=== PATIENT | female | born 1940 | race Caucasian/White ===

== ENCOUNTER 2017-02-12 07:30 | Inpatient (IN) ==
[2017-02-09 17:09] LABS: Appearance,Urine HAZY; Bilirubin,Urine NEG (NEG); Color,Urine YELLOW; Glucose,Urine (UA) NEGATIVE (NEG); Leukocyte Esterase,Urine NEG /uL (NEG); Nitrate,Urine NEG (NEG); Protein,Urine NEG (NEG); Specific Gravity,Urine 1.011 (1.000-1.035); Urine Blood NEG mg/dL (<0.03); Urobilinogen,Urine NEG (NEG)
[2017-02-09 18:14] LABS: Blood Urea Nitrogen 33 mg/dl (8-23)
[2017-02-09 18:17] LABS: Basophils # (Auto) 0 K/mcL (0.0-0.3); Basophils % (Auto) 0.7 % (0.0-2.0); Eosinophils # (Auto) 0.5 K/mcL (0.0-0.7); Eosinophils % (Auto) 7.7 % (0.0-7.0); Granulocytes % (Auto) 60.2 % (38.0-78.0); Lymphocytes # (Auto) 1.8 K/mcL (1.5-4.8); Lymphocytes % (Auto) 25.7 % (15.5-49.0); Mean Cell Volume 97.5 fL (80.0-100.0); Mean Corpuscular HGB Conc 32.7 g/dL (31.0-36.0); Mean Corpuscular Hemoglobin 31.8 pg (26.0-34.0); Monocytes # (Auto) 0.4 K/mcL (0.1-0.9); Monocytes % (Auto) 5.7 % (1.0-12.0); Platelet Count 250 K/mcL (140-440); RBC 3.58 M/mcL (4.00-5.20); Red Cell Distribution Width 12.9 % (11.5-14.5)
[~2017-02-12 07:30] MED LIST: ACETAMINOPHEN 500 MG TABLET PO SCH; PREGABALIN 150 MG CAPSULE PO SCH; ceFAZolin 1 GM VIAL IV SCH; oxyCODONE 10 MG TAB.ER.12H PO SCH
[2017-02-12] MEDS ORDERED: LIDOCAINE HCL/PF 100 MG/5 ML SYRINGE IV ONE (13:45)
[2017-02-12] MEDS ORDERED: MIDAZOLAM 5 MG/5 ML VIAL IV ONE (13:45)
[2017-02-12] MEDS ORDERED: ROPIVACAINE HCL/PF 30 ML VIAL IJ ONE (13:45)
[2017-02-12] MEDS ORDERED: ONDANSETRON 4 MG/2 ML VIAL IV ONE (13:45)
[2017-02-12] MEDS ORDERED: DEXAMETHASONE 10 MG/ML VIAL IV ONE (13:45)
[2017-02-12] MEDS ORDERED: TRANEXAMIC ACID 1,000 MG/10 ML VIAL IV ONE (13:45)
[2017-02-12] MEDS ORDERED: PROPOFOL 200 MG/20 ML VIAL IV ONE (13:45)
[2017-02-12] MEDS ORDERED: fentaNYL 100 MCG/2 ML VIAL IV ONE (13:45)
[2017-02-12] MEDS ORDERED: FLEETS ADULT ENEMA PR PRN (13:46)
[2017-02-12] MEDS ORDERED: POLYETHYLENE GLYCOL 3350 17 GM PACKET PO PRN (13:46)
[2017-02-12] MEDS ORDERED: MAGNESIUM HYDROXIDE 30 ML ORAL.SUSP PO PRN (13:46)
[2017-02-12] MEDS ORDERED: BENZOCAINE/MENTHOL 1 LOZENGE PO PRN ×2 (13:46→14:39)
[2017-02-12] MEDS ORDERED: TRANEXAMIC ACID 1,000 MG/10 ML VIAL IV SCH (13:46)
[2017-02-12] MEDS ORDERED: ONDANSETRON 4 MG/2 ML VIAL IV PRN ×2 (13:46→14:39)
[2017-02-12] MEDS ORDERED: BISACODYL 10 MG SUPP.RECT PR PRN (13:46)
[2017-02-12] MEDS ORDERED: GENTAMICIN SULFATE 800 MG/20 ML VIAL IR ONE (14:15)
[2017-02-12] MEDS ORDERED: NALOXONE HCL 0.4 MG/ML VIAL IV PRN (14:39)
[2017-02-12] MEDS ORDERED: HYDROmorphone 2 MG/ML SYRINGE IV PRN (14:39)
[2017-02-12] MEDS ORDERED: LACTATED RINGERS 250 ML IV PRN (14:39)
[2017-02-12] MEDS ORDERED: fentaNYL 100 MCG/2 ML VIAL IV PRN (14:39)
[2017-02-12] MEDS ORDERED: METHOCARBAMOL 1,000 MG/10 ML VIAL IV PRN (14:39)
[2017-02-12] MEDS ORDERED: IPRATROPIUM/ALBUTEROL 3 ML AMPUL.NEB NEB PRN (14:39)
[2017-02-12] MEDS ORDERED: MEPERIDINE 25 MG/ML SYRINGE IV PRN (14:39)
[2017-02-12] MEDS ORDERED: FLUMAZENIL 0.1 MG/ML ML IV PRN (14:39)
[2017-02-12] MEDS ORDERED: LACTATED RINGERS 1,000 ML IV SCH (14:45)
--- NOTE | 2017-02-12 15:02 | Brief Operative Note ---
Date of procedure: 02/12/17 Pre-op diagnosis: Right shoulder rca Post-op diagnosis: same Procedure: right shoulder reverse tsa Grafts/Implants: Yes Anesthesia: GETA Findings: complete rotator cuff tear Complications: none Complications Description: 02/12/17 15:02 none Surgeon: Alvarado Cassidy Global Project Manager: Dayton Fernandes Estimated blood loss (cc): 100 Specimens Removed/Pathology: none sent Condition: stable Disposition: PACU
--- NOTE | 2017-02-12 15:57 | Operative Note ---
DATE OF OPERATION: 02/12/2017 PREOPERATIVE DIAGNOSIS: Right shoulder rotator cuff arthropathy. POSTOPERATIVE DIAGNOSIS: Right shoulder rotator cuff arthropathy. PROCEDURE: Right reverse total shoulder arthroplasty using Thalia components. SURGEON: Alvarado Cassidy MD. DRY GOODS CLERK: Dayton Fernandes PA-C. ANESTHESIA: General LMA anesthesia. IMPLANTS: A 28 mm metaglene with three screws, 32 , 32 and 28. One central screw measuring 28 mm with a 40 mm glenosphere with 6 mm of offset and 2 mm eccentricity. The humerus was a size 10 cemented stem with a 44 mm outer body standard thickness poly. COMPLICATIONS: None. DESCRIPTION OF PROCEDURE: The patient was brought to the operating room and put to sleep with general LMA anesthesia. Once asleep, the patient had the right shoulder sterilely prepped and draped in the usual sterile fashion. We confirmed the operative shoulder and placed patient in a beach chair position. Ioban was placed over the skin. Tranexamic acid and antibiotics were given. We then made our deltopectoral incision, identified the cephalic vein which was retracted laterally, and identified the conjoined tendon which was retracted medially. We released the anterior capsule, and then dislocated the humeral head which it was noted to show complete loss of the rotator cuff, subscap, supraspinatus, infraspinatus, and teres minor. A little bit of the teres minor was intact posteriorly. We made our neck cut at the surgical neck region. We then placed the cap on the humeral head, performed a 360 degree capsulotomy. We placed a pin centrally in the glenoid, reamed up to the size 40, removed spurs inferiorly, and then placed a 28 mm glenosphere with a central screw 28 mm, two superior screws 32, and an inferior screw 28. We placed our 40 mm glenosphere with 6 mm of offset, 2 mm eccentricity. This was tapped into place and secured. We then prepared the humerus. The humerus was broached up to the size of 11. We trialed the 11 with a standard thickness poly. This seemed to be very stable. We then proceeded with cementing a size 10 stem with a standard thickness poly on the outer body. Once this was dry and cemented, we reduced the shoulder, removed excess cement, irrigated thoroughly. Cephalic vein was intact. We did use some vascular clips to clip some small vessels around the inner border of the neck of the scapula. We then closed the fascial layer with 2-0 Vicryl and closed the skin with 2-0 Vicryl and adhesive closure. The patient tolerated this well without complication. VANDANA:mikayla Job ID: [id number] Doc ID: [id number] Alvarado Cassidy MD
--- NOTE | 2017-02-12 16:07 | XRay Report ---
HISTORY: Reason for Exam:Post-OP Total Shoulder FINDINGS: There is a well-positioned reverse shoulder prosthesis. Posterior to the prosthetic humeral head there is a bone fragment which probably arose from the patient's [place] humeral head. It Measures 0.6 x 1.8 cm. The distal end of the clavicle has been removed. There is upward displacement of the clavicle relative to the acromion. Between these two bones there is a small soft tissue calcification. Surgical clips are present in the right axilla. IMPRESSION: Well-positioned right shoulder prosthesis Interpreted and Authenticated by: Peter Lopez 02/12/17
[2017-02-12] MEDS: LACTATED RINGERS 1,000 ML IV SCH ×2 (16:24→17:19)
[2017-02-12] MEDS: 0.9 % SODIUM CHLORIDE 10 ML SYRINGE IV SCH ×2 (17:13→21:01)
[2017-02-12] MEDS: DOCUSATE SODIUM 100 MG CAPSULE PO SCH (20:16)
[2017-02-12] MEDS: oxyCODONE 10 MG TAB.ER.12H PO SCH (20:16)
[2017-02-12] MEDS ORDERED: TEMAZEPAM 15 MG CAPSULE PO PRN (21:00)
[2017-02-12] MEDS ORDERED: SENNOSIDES 1 TABLET PO SCH (21:00)
[2017-02-12] MEDS: ceFAZolin 1 GM VIAL IV SCH (22:25)
[2017-02-13] MEDS: LACTATED RINGERS 1,000 ML IV SCH ×3 (02:05→14:00)
[2017-02-13] MEDS: 0.9 % SODIUM CHLORIDE 10 ML SYRINGE IV SCH ×2 (05:22→14:00)
[2017-02-13] MEDS: ceFAZolin 1 GM VIAL IV SCH (05:34)
[2017-02-13] MEDS: HYDROcodone/APAP 10/325MG TABLET PO PRN ×3 (05:34→12:15)
--- NOTE | 2017-02-13 06:52 | Orthopedic Progress Note ---
Subjective Patient information: Note initiated : 02/13/17 at 6:52 am Service Date, if different from initiated Date: [] Patient: Syeda Galvan 76 y/o F admitted on 02/12/17 for Right Reverse Total Shoulder Arthroplasty and Open. Chief Complaint: [Pt is stable this morning on post operative day 1 without any significant concerns or complaints. Patients vital signs have remained stable. Patients dressing is dry and exhibits a grossly intact neurovascular and neuromotor exam. Patients 10 point ROS is otherwise negative. ] Objective Vital signs: Vital Signs Temp Pulse Resp BP Pulse Ox 02/13/17 04:00 97.7 F 67 16 130/68 92 02/12/17 23:37 97.9 F 68 20 143/80 94 02/12/17 19:25 98.3 F 66 18 123/72 95 02/12/17 18:25 97.0 F L 65 16 120/63 94 02/12/17 17:55 149/77 94 02/12/17 17:25 161/96 96 02/12/17 17:10 139/85 94 02/12/17 16:55 155/81 97 02/12/17 16:40 96.4 F L 12 151/88 94 02/12/17 16:27 97.8 F 65 12 128/64 94 02/12/17 16:15 68 11 L 145/63 95 02/12/17 16:00 68 13 147/68 97 02/12/17 15:50 65 15 102/81 96 02/12/17 15:35 66 10 L 156/98 100 02/12/17 15:20 97.2 F L 68 10 L 137/77 100 02/12/17 08:05 18 95 02/12/17 08:00 18 95 02/12/17 07:38 97.1 F L 18 129/86 95 Intake and Output 02/12/17 02/13/17 02/13/17 21:59 05:59 13:59 Intake Total 1700 / 1700 2570 / 2570 Output Total 990 / 990 800 / 800 500 / 500 Balance 710 / 710 1770 / 1770 -500 / -500 Intake: IV 1000 / 1000 Lactated Ringers 1,000 ml 1000 / 1000 @ 125 mls/hr IV .Q8H [facility] Rx#:[id number] Oral 1570 / 1570 IV - Manual Only 1700 / 1700 Output: Urine Catheter Amount 500 / 500 Void Amount 340 / 340 800 / 800 500 / 500 Straight 500 / 500 Estimated Blood Loss 150 / 150 Other: Meal applesauce Percent of Meal Consumed 100% Feeding Ability Assist with Tray Set Up # Voids 1 Weight 177 lb 12.8 oz Intake & Output: Intake & Output 02/12/17 02/13/17 02/13/17 21:59 05:59 13:59 Intake Total 1700 / 1700 2570 / 2570 Output Total 990 / 990 800 / 800 500 / 500 Balance 710 / 710 1770 / 1770 -500 / -500 Weight 177 lb 12.8 oz Intake: IV 1000 / 1000 Lactated Ringers 1,000 ml 1000 / 1000 @ 125 mls/hr IV .Q8H [facility] Rx#:[id number] Oral 1570 / 1570 IV - Manual Only 1700 / 1700 Output: Urine Catheter Amount 500 / 500 Void Amount 340 / 340 800 / 800 500 / 500 Straight 500 / 500 Estimated Blood Loss 150 / 150 Other: Meal applesauce Percent of Meal Consumed 100% Feeding Ability Assist with Tray Set Up # Voids 1 Incision: Yes healing Incision clean and dry: Yes Dressing: Yes clean Weight bearing status: full Neurological exam IM: Yes motor sensory intact, Yes neurovascular intact Extremities exam IM: Yes neurovascular intact - Labs CBC & BMP: 02/13/17 04:10 02/09/17 15:55 Labs: Orthopedic Labs 02/12/17 02/09/17 07:42 15:55 POC PT 12.4 PT 19.3 H POC INR 1.0 INR 1.6 H APTT 33 02/13/17 02/09/17 04:10 15:55 Hgb 10.0 L 11.4 L Hct 30.4 L 34.9 L Assessment and Plan (1) History of total shoulder replacement Patient has been educated regarding wound care and dressings, follow up recommendations, and medication use. We will f/u with the patient within 2-3 weeks for wound check. Status: Acute
--- NOTE | 2017-02-13 06:55 | Discharge Summary ---
Ortho Discharge - TSA - Patient Instructions Diet: Regular Diet Activity: activity as tolerated, weight bearing as tolerated Total Shoulder Protocol: Leave immobilizer in place except for bathing and ROM. Abduction pillow. Continue to wear sling until seen by physician. Codman Pendulum : These exercises use momentum produced by your body to move your shoulder joint. Bend your knees and shift your weight to your front leg, then back, allowing your arm to swing in the same directions. Using the same technique, alternately shift your weight between your right and left legs, allowing your arm to swing from side to side. These exercises are also performed in counterclockwise and clockwise circular motions. Typically these exercises are performed several times per day, for a set number repetitions or minutes, such as 20 times in a row or 5 minutes at a time. Dressing Care: May shower in 2 days - Problem Maintenance (1) History of total shoulder replacement Status: Acute - Follow Up Plan Disposition: Home, Self-Care Prognosis: Good Rehab Potential: Good I certify that the patient requires SNF services: No Overall status at discharge: patient is progressing back to baseline - Orders For Discharge Prescriptions: Docusate Sodium [Colace] 100 mg PO BID #60 capsule HYDROcodone/APAP 10/325MG [[place] 10/325Mg] 1 - 2 tab PO Q4HP PRN #75 tablet PRN Reason: Pain
[2017-02-13] MEDS: DOCUSATE SODIUM 100 MG CAPSULE PO SCH (08:40)
[2017-02-13] MEDS: oxyCODONE 10 MG TAB.ER.12H PO SCH (08:41)
== END 2017-02-13 15:21 | disposition home or self-care (01) ==
LOC: MEDSUR 07:30
PROVIDERS: ADMIT Orthopaedic Surgery; ATTEND Orthopaedic Surgery

== ENCOUNTER 2017-06-14 04:57 | Inpatient (IN) ==
[2017-06-07 12:17] LABS: Basophils # (Auto) 0 K/mcL (0.0-0.3); Basophils % (Auto) 0.4 % (0.0-2.0); Eosinophils # (Auto) 0.4 K/mcL (0.0-0.7); Eosinophils % (Auto) 6.2 % (0.0-7.0); Granulocytes % (Auto) 72.6 % (38.0-78.0); Lymphocytes # (Auto) 1.1 K/mcL (1.5-4.8); Lymphocytes % (Auto) 15.3 % (15.5-49.0); Mean Corpuscular HGB Conc 33.3 g/dL (31.0-36.0); Mean Corpuscular Hemoglobin 31.3 pg (26.0-34.0); Monocytes # (Auto) 0.4 K/mcL (0.1-0.9); Monocytes % (Auto) 5.5 % (1.0-12.0); Platelet Count 212 K/mcL (140-440); RBC 3.87 M/mcL (4.00-5.20); Red Cell Distribution Width 14.5 % (11.5-14.5)
[2017-06-07 12:24] LABS: Blood Urea Nitrogen 40 mg/dl (8-23)
[2017-06-07 17:05] LABS: Appearance,Urine HAZY; Bacteria,Urine FEW /hpf (0); Bilirubin,Urine NEG (NEG); Color,Urine YELLOW; Glucose,Urine (UA) NEGATIVE (NEG); Leukocyte Esterase,Urine NEG /uL (NEG); Mucus,Urine FEW /hpf (0); Nitrate,Urine POS (NEG); Protein,Urine NEG (NEG); Specific Gravity,Urine 1.017 (1.000-1.035); Urine Blood NEG mg/dL (<0.03); Urine RBC 0 /hpf (0-1); Urine Squamous Epithelial Cell 0 /hpf (0-4); Urine WBC 1 /hpf (0-4); Urobilinogen,Urine NEG (NEG)
--- NOTE | 2017-06-12 16:27 | EKG Interpretations ---
COLLET MAKER: Kalin Babin MD ENCOUNTER DATE: 06/07/2017 COVER SHEET DATE: 06/14/2017 FINDINGS: Atrial pacing at 65 beats per minute. Nonspecific ST-segment changes. Left anterior fascicular block. HARJEET: Job ID: [id number] Doc ID: [id number] Kalin aBbin MD
[2017-06-14] MEDS ORDERED: oxyCODONE 10 MG TAB.ER.12H PO SCH (05:00)
[2017-06-14] MEDS ORDERED: ceFAZolin 1 GM VIAL IV SCH (05:00)
[2017-06-14] MEDS ORDERED: ACETAMINOPHEN 500 MG TABLET PO SCH (05:00)
[2017-06-14] MEDS ORDERED: PREGABALIN 75 MG CAPSULE PO SCH (05:00)
[2017-06-14] MEDS ORDERED: CELECOXIB 200 MG CAPSULE PO SCH (05:00)
[2017-06-14] MEDS ORDERED: KETOROLAC 30 MG, ROPIVACAINE HCL/PF 49.5 ML, EPINEPHrine 0.5 MG, 0.9 % SODIUM CHLORIDE ... IJ SCH (06:30)
[2017-06-14 06:39] LABS: Appearance,Urine SL HAZY; Bacteria,Urine 4+ /hpf (0); Bilirubin,Urine NEG (NEG); Color,Urine YELLOW; Glucose,Urine (UA) NORM (NEG); Leukocyte Esterase,Urine TRACE /uL (NEG); Nitrate,Urine POS (NEG); PH,Urine 5.5 (5.0-9.0); Protein,Urine 0 mg/dL (NEG); Specific Gravity,Urine 1.015 (1.000-1.035); Urine Blood NEG mg/dL (<0.03); Urine RBC 1 /hpf (0-1); Urine Squamous Epithelial Cell 0 /hpf (0-4); Urine WBC 3 /hpf (0-4); Urobilinogen,Urine NORM (NEG)
[2017-06-14] MEDS ORDERED: LIDOCAINE HCL/PF 100 MG/5 ML SYRINGE IV ONE (07:45)
[2017-06-14] MEDS ORDERED: ROPIVACAINE HCL/PF 20 ML VIAL IJ ONE (07:45)
[2017-06-14] MEDS ORDERED: ONDANSETRON 4 MG/2 ML VIAL IV ONE (07:45)
[2017-06-14] MEDS ORDERED: DEXAMETHASONE 10 MG/ML VIAL IV ONE (07:45)
[2017-06-14] MEDS ORDERED: PROPOFOL 200 MG/20 ML VIAL IV ONE (07:45)
[2017-06-14] MEDS ORDERED: MIDAZOLAM 2 MG/2 ML VIAL IV ONE (07:45)
[2017-06-14] MEDS ORDERED: TRANEXAMIC ACID 1,000 MG/10 ML VIAL IV ONE ×2 (07:45→09:45)
[2017-06-14] MEDS ORDERED: GENTAMICIN SULFATE 800 MG/20 ML VIAL IR ONE (08:24)
[2017-06-14] MEDS ORDERED: diphenhydrAMINE 50 MG/ML VIAL IV PRN (08:54)
[2017-06-14] MEDS ORDERED: NALOXONE HCL 0.4 MG/ML VIAL IV PRN (08:54)
[2017-06-14] MEDS ORDERED: LACTATED RINGERS 250 ML IV PRN (08:54)
[2017-06-14] MEDS ORDERED: HYDROmorphone 2 MG/ML SYRINGE IV PRN ×2 (08:54→09:45)
[2017-06-14] MEDS ORDERED: ePHEDrine 50 MG/ML AMPUL IV PRN (08:54)
[2017-06-14] MEDS ORDERED: METHOCARBAMOL 1,000 MG/10 ML VIAL IV PRN (08:54)
[2017-06-14] MEDS ORDERED: IPRATROPIUM/ALBUTEROL 3 ML AMPUL.NEB NEB PRN (08:54)
[2017-06-14] MEDS ORDERED: MEPERIDINE 50 MG/ML SYRINGE IM PRN (08:54)
[2017-06-14] MEDS ORDERED: BENZOCAINE/MENTHOL 1 LOZENGE PO PRN ×2 (08:54→09:45)
[2017-06-14] MEDS ORDERED: ONDANSETRON 4 MG/2 ML VIAL IV PRN ×2 (08:54→09:45)
[2017-06-14] MEDS ORDERED: FLUMAZENIL 0.1 MG/ML ML IV PRN (08:54)
[2017-06-14] MEDS ORDERED: MEPERIDINE 25 MG/ML SYRINGE IV PRN (08:54)
[2017-06-14] MEDS ORDERED: LACTATED RINGERS 1,000 ML IV SCH (09:00)
--- NOTE | 2017-06-14 09:39 | Brief Operative Note ---
Date of procedure: 06/14/17 Pre-op diagnosis: right knee djd severe valgus Post-op diagnosis: same Procedure: Right knee robotic TKA with peroneal nerve release Grafts/Implants: Yes Anesthesia: GETA Complications: none Complications Description: 06/14/17 09:39 none Surgeon: Alvarado Cassidy Diesel Mechanic Helper: Dayton Fernandes Estimated blood loss (cc): 22 Tourniquet Time (Minutes): 49 Specimens Removed/Pathology: none sent Condition: stable Disposition: PACU
[2017-06-14] MEDS ORDERED: MAGNESIUM HYDROXIDE 30 ML ORAL.SUSP PO PRN (09:45)
[2017-06-14] MEDS ORDERED: TEMAZEPAM 15 MG CAPSULE PO PRN (09:45)
[2017-06-14] MEDS ORDERED: FLEETS ADULT ENEMA PR PRN (09:45)
[2017-06-14] MEDS ORDERED: BISACODYL 10 MG SUPP.RECT PR PRN (09:45)
[2017-06-14] MEDS ORDERED: oxyCODONE/APAP 5/325MG TABLET PO PRN (09:45)
[2017-06-14] MEDS ORDERED: ACETAMINOPHEN 325 MG TABLET PO PRN (09:45)
[2017-06-14] MEDS ORDERED: POLYETHYLENE GLYCOL 3350 17 GM PACKET PO PRN (09:45)
[2017-06-14] MEDS: fentaNYL 100 MCG/2 ML VIAL IV PRN ×2 (10:14→10:18)
--- NOTE | 2017-06-14 11:13 | Operative Note ---
DATE OF OPERATION: 06/14/2017 PREOPERATIVE DIAGNOSIS: Right knee degenerative arthritis with a valgus malalignment. POSTOPERATIVE DIAGNOSIS: Right knee degenerative arthritis with a valgus malalignment. PROCEDURE: Right total knee replacement using the [employer] robot with a peroneal nerve release. SURGEON: Alvarado Cassidy MD. CENTRAL SUPPLY CLERK: Dayton Fernandes PA-C. ANESTHESIA: General LMA anesthesia. COMPLICATIONS: None. DESCRIPTION OF PROCEDURE: The patient was brought to the operating room and put to sleep with general LMA anesthesia. Once asleep, the patient had the right leg sterilely prepped and draped in the usual sterile fashion after confirming this was the operative site. Once this was done and preop antibiotics and tranexamic acid had been given, we then made a midline incision with a mid vastus approach. Through this we exposed the knee. There was significant valgus malalignment. Once this was done, we then recognized the severe arthritis throughout with gouty arthritis. We then proceeded with a total knee arthroplasty with robotic assistance. We placed two pins above and below the knee and placed the arrays. We registered the center of hip rotation and registered intraarticular pins, as well as thirty points on the femur and tibia were registered. We then balanced the knee, positioned the implants and made our bony cuts using the robot. Once this was done, spurs were removed. We tapped into place, setting rotation using the robot. Once done, we then irrigated thoroughly and trialed the components. A size 4 tibial baseplate, size 5 femur, and 11 mm poly was trialed. This seemed to be a little too loose medially and tight laterally. We then placed a 13 mm poly and released the lateral collateral and popliteus subperiosteally. This balanced the knee very nicely. We then resurfaced the patella with severe maltracking. This was a total thickness of 22 mm. This was cut to 13 mm and a 36 mm patellar button was cemented into place. The cemented components were placed. Excess cement was removed. Spurs were removed from the back of the knee. The knee was perfectly balanced. We irrigated and then implanted the implants as noted above. The fascial layer was then closed with a barbed suture, 2-0 Vicryl of the subcutaneous and then adhesive closure superficially. Pins were removed and intraarticular pins removed. I then performed the second procedure which was a peroneal nerve release. A 2-inch incision laterally over the fibular head was made, dissected down to the fascial layer and identified the peroneal nerve. This was tracked through and around the fibular head. We irrigated thoroughly once the nerve had been decompressed. We closed the skin with 2-0 Vicryl and artie. The patient tolerated this well without complication. Tourniquet deflated at about 51 minutes. RBH:mikayla Job ID: [id number] Doc ID: [id number] Alvarado Cassidy MD
[2017-06-14] MEDS: 0.45 % SODIUM CHLORIDE 1,000 ML IV SCH ×2 (11:40→21:09)
--- NOTE | 2017-06-14 12:09 | XRay Report ---
CLINICAL INFORMATION: Postop total knee prostheses COMPARISON: None. FINDINGS: Right total knee prostheses is anatomically aligned. There is no osseous abnormality. Soft tissue swelling seen as expected IMPRESSION: Negative Interpreted and Authenticated by: Jerome Mills 06/14/17
[2017-06-14] MEDS: KETOROLAC 15 MG/ML VIAL IV SCH ×3 (12:10→23:52)
[2017-06-14] MEDS: 0.9 % SODIUM CHLORIDE 10 ML SYRINGE IV SCH ×2 (14:18→23:17)
[2017-06-14] MEDS: ceFAZolin 1 GM VIAL IV SCH ×2 (16:00→22:35)
[2017-06-14] MEDS: HYDROcodone/APAP 10/325MG TABLET PO PRN (17:25)
[2017-06-14] MEDS ORDERED: ASPIRIN 325 MG ENTERIC COATED TABLET PO SCH (21:00)
[2017-06-14] MEDS ORDERED: DOCUSATE SODIUM 100 MG CAPSULE PO SCH (21:00)
[2017-06-14] MEDS ORDERED: ASPIRIN 325 MG ENTERIC COATED TABLET PO ONE (21:00)
[2017-06-14] MEDS: rOPINIRole 1 MG TABLET PO SCH (21:07)
[2017-06-14] MEDS: WARFARIN 2.5 MG TABLET PO SCH (21:08)
[2017-06-14] MEDS: SENNOSIDES 1 TABLET PO SCH (21:08)
[2017-06-14] MEDS: DOCUSATE SODIUM 100 MG CAPSULE PO SCH (21:08)
[2017-06-15] MEDS: HYDROcodone/APAP 10/325MG TABLET PO PRN ×5 (02:56→21:14)
[2017-06-15] MEDS: KETOROLAC 15 MG/ML VIAL IV SCH ×3 (04:24→17:55)
[2017-06-15] MEDS: 0.9 % SODIUM CHLORIDE 10 ML SYRINGE IV SCH ×3 (05:22→21:16)
[2017-06-15] MEDS: 0.45 % SODIUM CHLORIDE 1,000 ML IV SCH ×2 (07:11→15:59)
--- NOTE | 2017-06-15 07:33 | Orthopedic Progress Note ---
Subjective Patient information: Note initiated : 06/15/17 at 7:32 am Service Date, if different from initiated Date: [] Patient: Syeda Galvan 77 y/o F admitted on 06/14/17 for Right Total Knee Arthroplasty with Davion and . Chief Complaint: [Pt is stable this morning on post operative day 1 without any significant concerns or complaints. Patients vital signs have remained stable. Patients dressing is dry and exhibits a grossly intact neurovascular and neuromotor exam. Patients 10 point ROS is otherwise negative. ] Objective Vital signs: Vital Signs Temp Pulse Resp BP BP Pulse Ox 06/15/17 07:21 97 06/15/17 07:17 96.4 F L 16 120/74 98 06/15/17 03:02 98.1 F 65 140/82 97 06/15/17 00:00 97.3 F 64 117/74 95 06/14/17 20:00 97.7 F 69 16 124/74 100 06/14/17 18:00 98 06/14/17 14:00 96 06/14/17 13:45 66 127/76 96 06/14/17 12:45 68 154/93 99 06/14/17 12:15 67 141/71 99 06/14/17 11:45 67 146/85 93 06/14/17 11:30 67 163/89 100 06/14/17 11:15 152/78 98 06/14/17 11:00 95.9 F L 151/88 06/14/17 10:40 97.6 F 68 14 146/71 99 06/14/17 10:36 66 11 L 146/71 99 06/14/17 10:31 97.6 F 68 14 147/75 100 06/14/17 10:16 65 22 162/91 100 06/14/17 10:01 65 16 166/90 100 06/14/17 09:56 67 16 180/86 100 06/14/17 09:46 97.5 F 66 8 L 139/78 100 06/14/17 09:31 71 10 L 150/78 100 Intake and Output 06/14/17 06/15/17 06/15/17 21:59 05:59 13:59 Intake Total 1548 / 1548 1000 / 1000 Output Total 1000 / 1000 501 / 501 Balance 548 / 548 -501 / -501 1000 / 1000 Intake: IV 948 / 948 1000 / 1000 Sodium Chloride 0.45% 1, 948 / 948 1000 / 1000 000 ml @ 100 mls/hr IV . Q10H [facility] Rx#:[id number] Oral 600 / 600 Output: Urine Catheter Amount 1000 / 1000 500 / 500 Void Amount Other: Meal Dinner Percent of Meal Consumed 100% Feeding Ability Independent # Voids 1 Weight 187 lb 8 oz Intake & Output: Intake & Output 06/14/17 06/15/17 06/15/17 21:59 05:59 13:59 Intake Total 1548 / 1548 1000 / 1000 Output Total 1000 / 1000 501 / 501 Balance 548 / 548 -501 / -501 1000 / 1000 Weight 187 lb 8 oz Intake: IV 948 / 948 1000 / 1000 Sodium Chloride 0.45% 1, 948 / 948 1000 / 1000 000 ml @ 100 mls/hr IV . Q10H [facility] Rx#:[id number] Oral 600 / 600 Output: Urine Catheter Amount 1000 / 1000 500 / 500 Void Amount Other: Meal Dinner Percent of Meal Consumed 100% Feeding Ability Independent # Voids 1 Incision: Yes healing Incision clean and dry: Yes Dressing: Yes clean Weight bearing status: full Neurological exam IM: Yes motor sensory intact, Yes neurovascular intact Extremities exam IM: Yes Foot pink and warm, Yes neurovascular intact - Labs CBC & BMP: 06/15/17 04:46 06/07/17 09:29 Labs: Orthopedic Labs 06/15/17 06/14/17 06/07/17 04:46 05:30 09:29 POC PT 12.9 PT 15.6 H 27.0 H POC INR 1.1 INR 1.2 H 2.4 H APTT 36 06/15/17 06/07/17 04:46 09:29 Hgb 12.1 Hct 27.1 L 36.4 Assessment and Plan (1) Hx of total knee arthroplasty Patient has been educated regarding wound care and dressings, follow up recommendations, and medication use. We will f/u with the patient within 2-3 weeks for wound check. Status: Acute
--- NOTE | 2017-06-15 07:35 | Discharge Summary ---
Ortho Discharge - TKA - Patient Instructions Diet: Regular Diet Activity: activity as tolerated, weight bearing as tolerated Total Knee Protocol: For Total Knee: Start ROM MACHO with stationary bike or rocking chair. Work on gaining full extension of knee. Posterior dislocation precautions provided. Hip abductor strengthening and gait training instructions provided. Apply Cryocuff as instructed. Dressing Care: May shower in 2 days Patient Education: Total Knee Replacement (DC) Additional Instructions: Discharge Instructions: Home with [facility] Do the exercises at home that physical therapy gave you. [facility]- machine set up operator paper goods your walker and CPM or make arrangements to have your CPM delivered to your home. [phone]. Take your photo ID, insurance cards with you. Weight bearing as tolerated. If you have the Aquacel Ag dressing, leave in place for 7 days then remove. If dressing becomes soiled (turns black), remove and use gauze 4x4 dressing and silvasorb ointment and change daily. Keep incision clean and dry. If you have Dermabond (a dressing with a mesh-like appearance), leave open to air. You may start showering on post op day #2. The Dermabond dressing can get wet, do not scrub dressing. Pat dry. CMP for home use. To avoid constipation while taking any narcotic pain medication, take an over the counter stool softener/laxative. Use your Cryocuff or ice packs as directed, on for 20 minutes at a time throughout the day. This and elevation will help with pain and swelling. Call your physician for fevers above 100.5 or pain not controlled by medication. Your prescriptions are with your discharge information. Some medications were electronically transmitted to your pharmacy of choice.CPM for home use. - Problem Maintenance (1) Hx of total knee arthroplasty Status: Acute - Follow Up Plan Follow Up Appointments: Alvarado Cassidy MD [Physician] - 06/29/17 9:20 am Disposition: Home, Self-Care Prognosis: Good Rehab Potential: Good I certify that the patient requires SNF services: No Overall status at discharge: patient is progressing back to baseline - Orders For Discharge Prescriptions: Ciprofloxacin [Cipro] 500 mg PO BID #14 tablet Ciprofloxacin [Cipro] 500 mg PO BID #12 tablet HYDROcodone/APAP 10/325MG [Sarah 10/325Mg] 1 - 2 tab PO Q4HP PRN #75 tablet PRN Reason: Pain
[2017-06-15] MEDS: AMIODARONE HCL 200 MG TABLET PO SCH (07:53)
[2017-06-15] MEDS: OMEPRAZOLE 20 MG CAPSULE PO SCH (07:53)
[2017-06-15] MEDS: DOCUSATE SODIUM 100 MG CAPSULE PO SCH ×2 (08:40→21:13)
[2017-06-15] MEDS: METOPROLOL SUCCINATE 50 MG TAB.XL.24H PO SCH (08:40)
[2017-06-15] MEDS: MULTIVIT,THER IRON,CA,FA & MIN 1 TABLET PO SCH (08:41)
[2017-06-15] MEDS: SERTRALINE 50 MG TABLET PO SCH (08:41)
[2017-06-15] MEDS: LISINOPRIL 20 MG TABLET PO SCH (08:41)
[2017-06-15] MEDS: Solifenacin Succinate [Vesicare] 10 mg Tab PO SCH (08:41)
[2017-06-15] MEDS: CHLORTHALIDONE 25 MG TABLET PO SCH (08:42)
[2017-06-15] MEDS ORDERED: CEFUROXIME 500 MG TABLET PO SCH (09:00)
[2017-06-15] MEDS: rOPINIRole 1 MG TABLET PO SCH ×2 (18:27→21:16)
[2017-06-15] MEDS: WARFARIN 2.5 MG TABLET PO SCH (21:12)
[2017-06-15] MEDS: SENNOSIDES 1 TABLET PO SCH (21:13)
[2017-06-16] MEDS: KETOROLAC 15 MG/ML VIAL IV SCH ×2 (00:23→05:35)
[2017-06-16] MEDS: 0.45 % SODIUM CHLORIDE 1,000 ML IV SCH ×2 (02:50→10:58)
[2017-06-16] MEDS: ONDANSETRON ODT 4 MG TABLET SL PRN ×2 (05:30→10:23)
[2017-06-16] MEDS: 0.9 % SODIUM CHLORIDE 10 ML SYRINGE IV SCH ×2 (05:31→17:04)
[2017-06-16] MEDS: HYDROcodone/APAP 10/325MG TABLET PO PRN ×3 (07:35→15:38)
[2017-06-16] MEDS: OMEPRAZOLE 20 MG CAPSULE PO SCH (07:35)
[2017-06-16] MEDS: LISINOPRIL 20 MG TABLET PO SCH (09:20)
[2017-06-16] MEDS: AMIODARONE HCL 200 MG TABLET PO SCH (09:20)
[2017-06-16] MEDS: SERTRALINE 50 MG TABLET PO SCH (09:20)
[2017-06-16] MEDS: METOPROLOL SUCCINATE 50 MG TAB.XL.24H PO SCH (09:20)
[2017-06-16] MEDS: MULTIVIT,THER IRON,CA,FA & MIN 1 TABLET PO SCH (09:20)
[2017-06-16] MEDS: DOCUSATE SODIUM 100 MG CAPSULE PO SCH (09:20)
[2017-06-16] MEDS: CHLORTHALIDONE 25 MG TABLET PO SCH (09:21)
[2017-06-16] MEDS: Solifenacin Succinate [Vesicare] 10 mg Tab PO SCH (09:21)
[2017-06-16] MEDS ORDERED: NAPROXEN 250 MG TABLET PO PRN ×2 (10:06→12:00)
--- NOTE | 2017-06-16 12:09 | Orthopedic Progress Note ---
Subjective Patient information: Note initiated : 06/16/17 at 12:08 pm Service Date, if different from initiated Date: [] Patient: Syeda Galvan 77 y/o F admitted on 06/14/17 for Right Total Knee Arthroplasty with Davion and . Chief Complaint: [doing well and no cp no sob with no significant pain] Objective Vital signs: Vital Signs Temp Pulse Resp BP Pulse Ox 06/16/17 08:00 94 06/16/17 07:19 97.8 F 16 103/67 94 06/16/17 04:00 97.8 F 67 16 119/80 95 06/16/17 00:00 97.8 F 69 16 124/74 92 06/15/17 23:00 93 06/15/17 20:00 98.2 F 68 16 127/83 95 06/15/17 15:36 97.2 F 69 16 138/83 96 06/15/17 15:20 96 Intake and Output 06/15/17 06/16/17 06/16/17 21:59 05:59 13:59 Intake Total 200 / 200 640 / 640 Output Total 525 / 525 680 / 680 Balance -525 / -525 -480 / -480 640 / 640 Intake: Oral 200 / 200 640 / 640 Output: Urine Catheter Amount 550 / 550 Void Amount 525 / 525 Emesis 130 / 130 Other: Meal Breakfast Percent of Meal Consumed 100% # Bowel Movements 1 Weight 200 lb Intake & Output: Intake & Output 06/15/17 06/16/17 06/16/17 21:59 05:59 13:59 Intake Total 200 / 200 640 / 640 Output Total 525 / 525 680 / 680 Balance -525 / -525 -480 / -480 640 / 640 Weight 200 lb Intake: Oral 200 / 200 640 / 640 Output: Urine Catheter Amount 550 / 550 Void Amount 525 / 525 Emesis 130 / 130 Other: Meal Breakfast Percent of Meal Consumed 100% # Bowel Movements 1 Incision: Yes healing Incision clean and dry: Yes Dressing: Yes clean Weight bearing status: full Neurological exam IM: Yes oriented X3, Yes neurovascular intact Extremities exam IM: Yes Foot pink and warm, Yes neurovascular intact (dc home today\) - Labs CBC & BMP: 06/15/17 04:46 06/07/17 09:29 Labs: Orthopedic Labs 06/16/17 06/15/17 06/14/17 05:24 04:46 05:30 POC PT 12.9 PT 15.0 H 15.6 H POC INR 1.1 INR 1.2 H 1.2 H APTT 06/07/17 09:29 POC PT PT 27.0 H POC INR INR 2.4 H APTT 36 06/15/17 06/07/17 04:46 09:29 Hgb 12.1 Hct 27.1 L 36.4
== END 2017-06-16 20:55 | disposition home or self-care (01) | DRG 470 ==
LOC: MEDSUR 04:57
PROVIDERS: ADMIT Orthopaedic Surgery; ATTEND Orthopaedic Surgery